=== PATIENT | male | born 2005 | race Caucasian/White ===

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

== ENCOUNTER 2023-08-03 15:39 | Emergency (ER) | payer OTHER ==
[2023-08-03 17:20] LABS: BILIRUBIN,URINE NEGATIVE (NEGATIVE); GLUCOSE,URINE NORMAL (NORMAL); KETONES,URINE NEGATIVE (NEGATIVE); LEUKOCYTE ESTERASE,URINE NEGATIVE (NEGATIVE); NITRITE,URINE NEGATIVE (NEGATIVE); OCCULT BLOOD,URINE NEGATIVE (NEGATIVE); PROTEIN,URINE NEGATIVE (NEGATIVE); UROBILINOGEN,URINE NORMAL (NEGATIVE)
[2023-08-03 17:23] LABS: APPEARANCE,URINE CLEAR (CLEAR); BACTERIA,URINE FEW (NS); COLOR,URINE YELLOW (YELLOW); RBC,URINE 0-5 (0-5); SQUAMOUS EPITHELIAL CELLS,UR OCCASIONAL (NS,R,O); WBC,URINE 0-5 (0-5)
[2023-08-03] MEDS: Iopamidol 755 Mg/ML 100 ML Bottle IV SCH (17:48)
[2023-08-03] MEDS: Sulfamethoxazole/Trimethoprim 800-160 MG Tab PO ONE (19:54)
== END 2023-08-03 20:10 | disposition home or self-care (01) ==
LOC: FB.ED 15:39
DX: N41.1 Chronic prostatitis (principal); J45.909 Unspecified asthma, uncomplicated; Z91.048 Other nonmedicinal substance allergy status; Z79.899 Other long term (current) drug therapy
CPT/HCPCS: 36415; 74178; 81001; 84153; 99284; A9270; Q9967

== ENCOUNTER 2023-10-10 09:55 | Day surgery (SDC) | payer OTHER ==
[~2023-10-10 09:55] MED LIST: Sodium Chloride 0.9% 10 ML Syringe FLUSH PRN
[2023-10-10] MEDS: Lactated Ringers 1,000 ML IV SCH (10:38)
[2023-10-10] MEDS ORDERED: Lidocaine 2% 100 MG/5 ML Syringe IVPUSH ONE (13:06)
[2023-10-10] MEDS ORDERED: Midazolam 1 MG/ML 2 ML SDV IV ONE (13:06)
[2023-10-10] MEDS ORDERED: Propofol 200 MG/20 ML SDV IV ONE (13:06)
== END 2023-10-10 12:45 | disposition home or self-care (01) ==
LOC: FB.SDS 09:55
PROVIDERS: ATTEND Surgery
DX: K20.90 Esophagitis, unspecified without bleeding (principal); K29.80 Duodenitis without bleeding; R13.10 Dysphagia, unspecified
CPT/HCPCS: 00731; 43239; 88305; J2250; J2704; J7120